=== PATIENT | male | born 1990 | race Caucasian/White ===

== ENCOUNTER 2023-07-13 11:36 | Emergency (ER) | payer MEDICAID, OTHER ==
[~2023-07-13] VITALS: Ht 172.7 cm; Wt 63.6 kg
[2023-07-13 12:31] LABS: BASO % 0.2 % (0.0-1.0); HEMATOCRIT 40.3 % (42.0-52.0); HEMOGLOBIN 14.1 g/dl (13.5-17.5); LYMPH # 0.4 10^3/uL (1.5-5.0); LYMPH % 2.2 % (24.0-44.0); MEAN CORPUSCULAR HEMOGLOBIN 32.3 pg (27.0-33.0); MEAN CORPUSCULAR VOLUME 92.2 fl (80.0-96.0); MONO # 0.3 10^3/uL (0.0-0.8); NEUTROPHILS # 15.7 10^3/uL (1.5-8.5); NEUTROPHILS % 95.1 % (36.0-66.0); PLATELET COUNT, AUTOMATED 346 10^3/uL (150-450); RED BLOOD COUNT 4.37 10^6/uL (4.30-6.10); WHITE BLOOD COUNT 16.5 10^3/uL (4.0-10.0)
[2023-07-13 12:55] LABS: ALBUMIN 3.9 G/DL (3.2-5.2); BILIRUBIN,DIRECT 0.4 MG/DL (<0.4); TOTAL PROTEIN 6.5 G/DL (5.7-8.2)
[2023-07-13 13:08] LABS: RSV AMPLIFICATION NEGATIVE (NEGATIVE)
[2023-07-13] MEDS ORDERED: ONDANSETRON 4MG 2ML VIAL IV ONE (14:55)
[2023-07-13] MEDS ORDERED: ISOVUE-370 76% 100ML VIAL As Ordered ONE (15:01)
[2023-07-13] MEDS ORDERED: NS 1,000 ML IV ONE ×2 (16:35→17:55)
[2023-07-13] MEDS ORDERED: ONDANSETRON 4MG ORAL DISINTEGRATING TAB PO PRN ×2 (19:25)
[2023-07-13] MEDS ORDERED: ONDA4TAB6 PO ×2 (19:28→19:29)
[2023-07-13 19:42] VITALS: BP 108/57; TEMP 99.3; O2SAT 96
== END 2023-07-13 20:01 | disposition home or self-care (01) ==
LOC: EDBD 11:36 → M ED 11:36
DX: R11.10 Vomiting, unspecified (principal)
CPT/HCPCS: 74177; 80047; 80076; 81001; 82150; 83605; 83690; 85025; 87631; 93005; 96361; 96374; 99285; J2405; Q9967

== ENCOUNTER 2024-12-15 10:31 | Emergency (ER) | payer OTHER ==
[~2024-12-15] VITALS: Ht 172.7 cm; Wt 69.7 kg
[~2024-12-15 10:31] MED LIST: ONDA-282 PO
[2024-12-15 11:00] LABS: BASO # 0.1 10^3/uL (0.0-0.2); BASO % 0.5 % (0.0-1.0); EOS % 0.3 % (0.0-3.0); HEMATOCRIT 45.8 % (42.0-52.0); HEMOGLOBIN 15.8 g/dl (13.5-17.5); LYMPH # 2.3 10^3/uL (1.5-5.0); LYMPH % 21.2 % (24.0-44.0); MEAN CORPUSCULAR HEMOGLOBIN 31.3 pg (27.0-33.0); MEAN CORPUSCULAR HGB CONC 34.5 g/dl (32.0-36.5); MEAN CORPUSCULAR VOLUME 90.7 fl (80.0-96.0); MONO # 0.7 10^3/uL (0.0-0.8); MONO % 6.4 % (2.0-8.0); NEUTROPHILS # 7.7 10^3/uL (1.5-8.5); NEUTROPHILS % 71.4 % (36.0-66.0); PLATELET COUNT, AUTOMATED 439 10^3/uL (150-450); RED BLOOD COUNT 5.05 10^6/uL (4.30-6.10); WHITE BLOOD COUNT 10.8 10^3/uL (4.0-10.0)
[2024-12-15 11:16] LABS: PROTHROMBIN TIME 13.5 SECONDS (12.5-14.5)
[2024-12-15 11:21] LABS: LIPASE 29 U/L (12-53)
[2024-12-15 11:22] LABS: CK-MB VALUE MASS 1.1 NG/ML (<3.6)
[2024-12-15 11:28] LABS: CPK CREATINE PHOSPHOKINASE 176 U/L (46-171); MB/CK RELATIVE INDEX 0.62 (< OR =4)
[2024-12-15 11:41] LABS: ALBUMIN 4.3 G/DL (3.2-5.2); ALKALINE PHOSPHATASE 56 U/L (40-129); ALT/SGPT 22 U/L (7.0-40); AST/SGOT 16 U/L (<34); BILIRUBIN,DIRECT 0.3 MG/DL (<0.4); BLOOD UREA NITROGEN 11 MG/DL (9-23); CALCIUM LEVEL 9.6 MG/DL (8.5-10.1); CARBON DIOXIDE LEVEL 26 MMOL/L (20-31); CHLORIDE LEVEL 105 MMOL/L (98-107); GLOMERULAR FILTRATION RATE > 90.0 (>60); GLUCOSE, FASTING 87 MG/DL (60-100); POTASSIUM SERUM 4.2 MMOL/L (3.5-5.1); SODIUM LEVEL 139 MMOL/L (136-145); TOTAL PROTEIN 7.7 G/DL (5.7-8.2)
[2024-12-15] MEDS: KETOROLAC 30 MG/ML 1ML VIAL IV ONE (12:42)
[2024-12-15 13:46] VITALS: BP 123/70; TEMP 97.9; O2SAT 97
== END 2024-12-15 13:53 | disposition home or self-care (01) ==
LOC: M ED 10:31
DX: R07.9 Chest pain, unspecified (principal); Z79.899 Other long term (current) drug therapy
CPT/HCPCS: 71045; 80048; 80076; 82550; 82553; 83690; 84484; 85025; 85379; 85610; 85652; 87486; 87581; 87633; 87798; 93005; 96374; 99284; J1885